=== PATIENT | female | born 1990 | race African-American/Black ===

== ENCOUNTER → 2025-01-26 09:15 | Outpatient (CLI) | payer MEDICARE, MEDICAID, SELFPAY ==
[2025-01-26 10:46] LABS: Hemoglobin A1C% w Est Avg Glu 11.2 % (4.0-6.0)
[2025-01-26 10:52] LABS: Cholesterol 166 mg/dL (140-199); Triglycerides 133 mg/dL (35-150)
[2025-01-26 11:08] LABS: HDL Cholesterol 40 mg/dL (40-60)
== END ==
PROVIDERS: PCP Family Medicine; Referring Provider Family Medicine; Visit Provider Family Medicine
DX: Z13.220 Encounter for screening for lipoid disorders (principal); E11.9 Type 2 diabetes mellitus without complications
CPT/HCPCS: 36415; 80061; 83036